=== PATIENT | male | born 1935 | race Caucasian/White ===

== ENCOUNTER 2017-05-25 16:23 | Inpatient (IN) | payer MEDICARE, BC ==
[~2017-05-25] VITALS: Ht 177.8 cm; Wt 81.6 kg
--- NOTE | 2017-05-25 16:41 | NUR ---
RECIEVED PATIENT TO ED BED 10, PATIENT WAS [id number] FROM WORK FOR S/P WITNESSED SYNCOPE. NO REPORTED INJURY. BS IN FIELD 134. PT IS BRADYCARDIC IN EKG. PT DENIES CHEST PAIN. GOWNED AND PLACED ON CONT CARDIAC AND POX MONITORING. ALL NEEDS ARE ATTENEDED, KEPT COMFORTABLE. AT BEDSIDE FOR EVAL
[2017-05-25 16:51] LABS: BASOPHILS # (AUTO) 0.2 /CMM (0.0-0.2); BASOPHILS % (AUTO) 2.5 % (0.0-2.0); EOSINOPHILS % (AUTO) 4.5 % (0.0-6.0); HEMATOCRIT 37 % (39-51); HEMOGLOBIN 12.8 g/dL (13.5-17.5); LYMPHOCYTES # (AUTO) 0.9 /CMM (0.8-4.8); LYMPHOCYTES % (AUTO) 13.6 % (20.0-44.0); MEAN CORPUSCULAR HGB CONC 34 g/dl (31.0-36.0); MEAN CORPUSCULAR VOLUME 90 fL (80-96); MONOCYTES # (AUTO) 0.4 /CMM (0.1-1.30); MONOCYTES % (AUTO) 6.4 % (2.0-12.0); NEUTROPHILS # (AUTO) 4.6 /CMM (1.8-8.9); PLATELET COUNT (AUTO) 192 /CMM (150-450); RDW COEFFICIENT OF VARIATION 12.9 (11.5-15.0); RED BLOOD CELL COUNT(AUTO) 4.13 MIL/uL (4.5-6.0); WHITE BLOOD COUNT (AUTO) 6.4 K/uL (4.3-11.0)
[2017-05-25] MEDS ORDERED: AMLO10TA6 PO (16:54)
[2017-05-25] MEDS ORDERED: DONE10TA11 PO (16:54)
[2017-05-25] MEDS ORDERED: MEMA28CA PO (16:54)
[2017-05-25] MEDS ORDERED: ESCI10TA PO (16:54)
[2017-05-25] MEDS ORDERED: CYAN10009 PO ×2 (16:54)
[2017-05-25] MEDS ORDERED: ROSU10TA PO (16:54)
[2017-05-25] MEDS ORDERED: FOLI1TAB16 PO (16:54)
--- NOTE | 2017-05-25 16:54 | NUR ---
PATIENT TRANSPORTED FOR CT HEAD.
[2017-05-25 17:05] LABS: CALCIUM, SERUM 9.2 mg/dL (8.5-10.1); CARBON DIOXIDE 27 mmol/L (21-32); CHLORIDE 108 mmol/L (98-107); GLUCOSE 115 mg/dL (74-106); INR 0.98 (0.85-1.15); POTASSIUM 4.3 mmol/L (3.5-5.1); SODIUM SERUM 141 mmol/L (136-145); UREA NITROGEN, BLOOD 35 mg/dL (7-18)
[2017-05-25 17:08] LABS: ALANINE AMINOTRANSFERASE 19 U/L (12-78); ALBUMIN 3.5 g/dL (3.4-5.0); ALKALINE PHOSPHATASE 70 U/L (46-116); ASPARTATE AMINOTRANSFERASE 15 U/L (15-37); BILIRUBIN,DIRECT 0.1 mg/dL (0.0-0.2); BILIRUBIN,TOTAL 0.3 mg/dL (0.2-1.0)
[2017-05-25 17:10] LABS: TROPONIN I < 0.017 ng/mL (0.00-0.056)
--- NOTE | 2017-05-25 17:28 | NUR ---
UPDATED BED 987-3
--- NOTE | 2017-05-25 19:01 | NUR ---
CALLED [facility] SEATING CAPTAIN WAS PAGED.
--- NOTE | 2017-05-25 19:20 | NUR ---
REPORT GIVEN TO PABLITO MELARA FOR KATYA.
[2017-05-25] MEDS ORDERED: IV NS 0.9% 1,000 ML IV PRN (19:22)
[2017-05-25] MEDS ORDERED: ACETAMINOPHEN 325 MG TABLET PO PRN (19:30)
[2017-05-25] MEDS ORDERED: ZOLPIDEM TARTRATE 5 MG TABLET PO PRN (19:30)
[2017-05-25] MEDS ORDERED: MAG HYDROX/AL HYDROX/SIMETH 30 ML UDC PO PRN (19:30)
[2017-05-25] MEDS ORDERED: HYDROCODONE/APAP 5/325MG 1 EACH TABLET PO PRN (19:30)
[2017-05-25] MEDS ORDERED: Z GUARD REMEDY 2 OZ OINT TP PRN (19:30)
[2017-05-25] MEDS ORDERED: MAGNESIUM HYDROXIDE 30 ML UDC PO PRN (19:30)
[2017-05-25] MEDS ORDERED: ONDANSETRON HCL/PF 4 MG/2 ML VIAL IVP PRN (19:30)
--- NOTE | 2017-05-25 19:52 | NUR ---
REPORT WAS GIVEN TO RN FOR KATYA
--- NOTE | 2017-05-25 19:55 | NUR ---
RECEIVED REPORT FROM ER NURSE KELTON REGARDING THE PATIENT WHO IS BEING ADMITTED TO TELEMETRY FLOOR.
[2017-05-25 20:05] VITALS: BP 140/86
--- NOTE | 2017-05-25 20:30 | NUR ---
SHOTGUN SHELL ASSEMBLY MACHINE OPERATOR OPENING NOTE PATIENT WAS BROUGHT TO THE UNITE VIA GURNEY AT 2009. WAS ABLE TO AMBULATE TO BED WITH STANDBY ASSISTANCE. PATIENT ALERT ORIENTED X3, OCCASIONAL FORGETFULNESS NOTED. PATIENT IS ON ROOM AIR, TOLERATES WELL, DENIES SOB OR CHEST PAIN, IN NO APPARENT DISTRESS OR DISCOMFORT AT THIS TIME, RESPIRATIONS EVEN AND UNLABORED. PATIENT WAS MADE COMFORTABLE IN BED. VITAL SIGNS TAKEN, BELONGINGS CHECKED AND ACCOUNTED FOR. FAMILY AT BEDSIDE. DR. RUIZ ASSESSED AND INTERVIEWED THE PATIENT AT BEDSIDE. ORDERS RECEIVED TO ADMIT THE PATIENT, PLACE ON TELEMETRY MONITORING. PATIENT WITH L FOREARM IV ACCESS, 18G, PATENT AND INTACT. CURRENTLY DENIES DIZZINESS. SAFETY MEASURES IN PLACE, BED IN LOW LOCKED POSITION, SIDE RAILS UP X2, CALL LIGHT WITHIN EASY REACH, WILL [place] OUT ALL THE ADMISSION ORDERS AND CONTINUE TO MONITOR.
[2017-05-25 21:01] LABS: IRON, SERUM 51 ug/dl (50-175); TOTAL IRON BINDING CAPACITY 284 ug/dl (250-450)
[2017-05-25] MEDS: ATORVASTATIN 10 MG TABLET PO SCH (21:34)
[2017-05-25] MEDS: CYANOCOBALAMIN 500 MCG TABLET PO SCH ×2 (21:34→22:53)
[2017-05-25] MEDS ORDERED: DONEPEZIL 5 MG TABLET PO SCH (22:00)
[2017-05-25 22:39] VITALS: BP_SYST 116; BP_SYST 140; BP_SYST 148; BP_DIAS 65; BP_DIAS 74; BP_DIAS 86
[2017-05-26] VITALS (8 sets, daily range): BP systolic 122–146; BP diastolic 59–98
--- NOTE | 2017-05-26 | NUR ---
PATIENT'S HEART RATE WAS IN HIGH 40S ON WINDOWS DESKTOP ENGINEER. CHECKED ON THE PATIENT, SLEEPING COMFORTABLY IN BED. PATIENT'S SON AT BEDSIDE, STATES HE DOES NOT KNOW WEATHER THIS IS NORMAL FOR HIS FATHER. CHECKED THE ECG STRIP DONE EARLIER WAS CONSISTENT WITH CURRENT READING. AWOKEN THE PATIENT TO CHECK THE HEART RATE STATUS, WENT UP TO HIGH 60S AND LOW 70S IMMEDIATELY. WILL CONTINUE TO MONITOR THROUGHOUT THE NIGHT.
--- NOTE | 2017-05-26 05:00 | NUR ---
PATIENT'S HEART RATE REMAINS STABLE IN HIGH 40S TO HIGH 50S WHILE ASLEEP. WHEN AWAKE HEART RATE GOES UP TO 70. WILL CONTINUE TO MONITOR.
[2017-05-26 06:40] LABS: BASOPHILS % (AUTO) 0.6 % (0.0-2.0); EOSINOPHILS % (AUTO) 5.6 % (0.0-6.0); HEMATOCRIT 37 % (39-51); HEMOGLOBIN 12.5 g/dL (13.5-17.5); LYMPHOCYTES % (AUTO) 14.7 % (20.0-44.0); MEAN CORPUSCULAR HGB CONC 34 g/dl (31.0-36.0); MEAN CORPUSCULAR VOLUME 91 fL (80-96); MONOCYTES # (AUTO) 0.5 /CMM (0.1-1.30); MONOCYTES % (AUTO) 7.3 % (2.0-12.0); NEUTROPHILS # (AUTO) 4.7 /CMM (1.8-8.9); NEUTROPHILS % (AUTO) 71.8 % (43.0-81.0); PLATELET COUNT (AUTO) 199 /CMM (150-450); RDW COEFFICIENT OF VARIATION 13.7 (11.5-15.0); RED BLOOD CELL COUNT(AUTO) 4.03 MIL/uL (4.5-6.0); WHITE BLOOD COUNT (AUTO) 6.6 K/uL (4.3-11.0)
--- NOTE | 2017-05-26 06:42 | NUR ---
WINDOWS SYSTEM ADMIN CLOSING NOTE PATIENT IN BED, SLEEPING, AROUSED EASY WITH VERBAL STIMULI, ORIENTED X2-3, OCCASIONAL CONFUSION, ON 2L O2 VIA NC. TOLERATING WELL, DENIES SOB OR CHEST PAIN, IN NO APPARENT DISTRESS OR DISCOMFORT AT THIS TIME, RESPIRATIONS EVEN AND UNLABORED. PATIENT ABLE TO VERBALIZE NEEDS, VITAL SIGNS STABLE, FAMILY AT BEDSIDE. ON TELEMETRY MONITORING WITH BBB BRADYCARDIA HR OF 59. PATIENT WITH L FOREARM IV ACCESS, 18G, PATENT AND INTACT, WITH FLUIDS RUNNING AT 75ML/HR. CURRENTLY DENIES DIZZINESS. ALL NEEDS ATTENDED, SAFETY MEASURES IN PLACE, BED IN LOW LOCKED POSITION, SIDE RAILS UP X2, CALL LIGHT WITHIN EASY REACH, WILL ENDORSE TO AM NURSE FOR KATYA.
[2017-05-26 06:57] LABS: CHOLESTEROL 127 mg/dL (<200); HDL CHOLESTEROL 54 mg/dL (40-60); LDL 72 mg/dL (0-99); THYROID STIMULATING HORMONE 4.158 uIU/mL (0.358-3.74); TRIGLYCERIDES 45 mg/dL (30-150)
[2017-05-26 06:59] LABS: ALANINE AMINOTRANSFERASE 21 U/L (12-78); ALBUMIN 3.3 g/dL (3.4-5.0); ALKALINE PHOSPHATASE 60 U/L (46-116); ASPARTATE AMINOTRANSFERASE 15 U/L (15-37); BILIRUBIN,TOTAL 0.4 mg/dL (0.2-1.0); CALCIUM, SERUM 9.2 mg/dL (8.5-10.1); CARBON DIOXIDE 24 mmol/L (21-32); CHLORIDE 110 mmol/L (98-107); CREATININE 1.7 mg/dL (0.6-1.3); GLUCOSE 78 mg/dL (74-106); PHOSPHORUS 3.8 mg/dL (2.5-4.9); POTASSIUM 4.4 mmol/L (3.5-5.1); SODIUM SERUM 141 mmol/L (136-145); TOTAL PROTEIN, SERUM 6.6 g/dL (6.4-8.2); UREA NITROGEN, BLOOD 36 mg/dL (7-18)
--- NOTE | 2017-05-26 07:10 | NUR ---
REPORT RECEIVED AT THE BEDSIDE. PATIENT IS RESTING COMFORTABLY IN BED. NO SOB OR DISTRESS NOTED AT THIS TIME. PATIENT DENIES PAIN. BED IN A LOW POSITION, CALL LIGHT WITHIN REACH. PATIENT HAS INCOMPLETE MED REC. WILL NOTIFY ATTENDING MD. WILL MONITOR. Addendum: 05/26/17 at 0750 by DEIRDRE HERNANDEZ RN HEART RATE SB AT 59 WITH BBB
[2017-05-26] MEDS: IV NS 0.9% 1,000 ML IV SCH ×2 (08:26→13:26)
[2017-05-26] MEDS: FOLIC ACID 1 MG TABLET PO SCH (08:27)
[2017-05-26] MEDS: CYANOCOBALAMIN 500 MCG TABLET PO SCH ×2 (08:27→21:05)
[2017-05-26] MEDS: AMLODIPINE BESYLATE 10 MG TABLET PO SCH (08:27)
[2017-05-26] MEDS: ESCITALOPRAM OXALATE (10 MG) 10 MG TABLET PO SCH (08:28)
[2017-05-26] MEDS: MEMANTINE HCL 5 MG TABLET PO SCH ×2 (08:28→16:14)
--- NOTE | 2017-05-26 20:00 | NUR ---
RN NOTES PATIENT IN BED, ALERT AND ORIENTED X3, WITH FORGETFULNESS AND IRRITABILITY, CALM, NO SOB, NO RESPIRATORY DISTRESS, DENIES ANY PAIN, NO DIZZINESS, ON TELE MONITOR, SR TROY, HEART RATE GOES DOWN TO 48-49, UNSTEADY GAIT, NEEDS ASSISTANCE TO AMBULATE, KEPT SAFE AND COMFORTABLE, FAMILY MEMBERS AT THE BEDSIDE.
[2017-05-26] MEDS: ATORVASTATIN 10 MG TABLET PO SCH (21:10)
[2017-05-27] VITALS (7 sets, daily range): BP systolic 117–135; BP diastolic 61–77
[2017-05-27 06:18] LABS: ALANINE AMINOTRANSFERASE 16 U/L (12-78); ALBUMIN 3.1 g/dL (3.4-5.0); ALKALINE PHOSPHATASE 60 U/L (46-116); ASPARTATE AMINOTRANSFERASE 14 U/L (15-37); BILIRUBIN,TOTAL 0.5 mg/dL (0.2-1.0); CALCIUM, SERUM 9.2 mg/dL (8.5-10.1); CARBON DIOXIDE 24 mmol/L (21-32); CHLORIDE 111 mmol/L (98-107); CREATININE 1.7 mg/dL (0.6-1.3); GLUCOSE 85 mg/dL (74-106); MAGNESIUM 1.9 mg/dL (1.8-2.4); PHOSPHORUS 3.3 mg/dL (2.5-4.9); SODIUM SERUM 142 mmol/L (136-145); TOTAL PROTEIN, SERUM 6.2 g/dL (6.4-8.2); UREA NITROGEN, BLOOD 27 mg/dL (7-18)
[2017-05-27 06:24] LABS: BASOPHILS # (AUTO) 0.1 /CMM (0.0-0.2); BASOPHILS % (AUTO) 0.8 % (0.0-2.0); EOSINOPHILS % (AUTO) 5.9 % (0.0-6.0); HEMATOCRIT 37 % (39-51); HEMOGLOBIN 12.5 g/dL (13.5-17.5); LYMPHOCYTES # (AUTO) 1.2 /CMM (0.8-4.8); LYMPHOCYTES % (AUTO) 17.6 % (20.0-44.0); MEAN CORPUSCULAR HGB CONC 34 g/dl (31.0-36.0); MEAN CORPUSCULAR VOLUME 91 fL (80-96); MONOCYTES # (AUTO) 0.6 /CMM (0.1-1.30); MONOCYTES % (AUTO) 8.1 % (2.0-12.0); NEUTROPHILS # (AUTO) 4.6 /CMM (1.8-8.9); NEUTROPHILS % (AUTO) 67.6 % (43.0-81.0); PLATELET COUNT (AUTO) 192 /CMM (150-450); RDW COEFFICIENT OF VARIATION 13.9 (11.5-15.0); RED BLOOD CELL COUNT(AUTO) 4.06 MIL/uL (4.5-6.0); WHITE BLOOD COUNT (AUTO) 6.8 K/uL (4.3-11.0)
--- NOTE | 2017-05-27 06:33 | NUR ---
RN NOTES PATIENT IS ALERT AND AWAKE, NO DISTRESS, ASSISTED TO TOILET, NO ACUTE CHANGE DURING SHIFT, KEPT SAFE AND COMFORTABLE, CALL LIGHT WITHIN REACH.
--- NOTE | 2017-05-27 07:05 | NUR ---
RN NOTES PT IS LAYING DOWN IN BED, SLEEPING COMFORTABLY WITH SON AT BEDSIDE. PT ON RA, RESPIRATIONS ARE EVEN AND UNLABORED. IV ON LFA INTACT AND SL. SAFETY MEASURES ARE IN PLACE, CALL LIGHT IS IN REACH. WILL CONTINUE TO MONITOR.
[2017-05-27] MEDS ORDERED: IV NS 0.9% 1,000 ML IV SCH (08:00)
[2017-05-27] MEDS: FOLIC ACID 1 MG TABLET PO SCH (08:27)
[2017-05-27] MEDS: CYANOCOBALAMIN 500 MCG TABLET PO SCH (08:27)
[2017-05-27] MEDS: AMLODIPINE BESYLATE 10 MG TABLET PO SCH (08:27)
[2017-05-27] MEDS: ESCITALOPRAM OXALATE (10 MG) 10 MG TABLET PO SCH (08:27)
[2017-05-27] MEDS: MEMANTINE HCL 5 MG TABLET PO SCH (08:27)
[2017-05-27] MEDS ORDERED: DONE10TA11 PO (11:09)
--- NOTE | 2017-05-27 11:48 | NUR ---
RN NOTES PT WAS DISCHARGED HOME, ACCOMPANIED BY FAMILY, IN STABLE CONDITION. IV AND AD BAND WERE REMOVED. PTS BELONGINGS RETURNED TO PT. DISCHARGE INSTRUCTIONS WERE GIVEN AND PT INFORMED OF NEW PRESCRIPTION AND TO FOLLOW UP WITH PCP, NEURO, AND SEO COORDINATOR. PT STATED HE WOULD MAKE HIS OWN APPOINTMENT FOR FOLLOW UP. PT REFUSED [facility] F[facility] APPOINT[facility]. DISCHARGE PAPERS WERE SIGNED AND PT WAS BROUGHT DOWN TO PRIVATE CARE WITH ASSISTANCE FROM STAFF.
== END 2017-05-27 11:45 | disposition home or self-care (01) | DRG 308 ==
LOC: ER 16:25 → TELE 19:41
PROVIDERS: ADMIT Internal Medicine; ATTEND Internal Medicine
DX: I49.5 Sick sinus syndrome (principal); N17.0 Acute kidney failure with tubular necrosis; I25.10 Atherosclerotic heart disease of native coronary artery without angina pectoris; Z95.1 Presence of aortocoronary bypass graft; F03.90 Unspecified dementia, unspecified severity, without behavioral disturbance, psychotic disturbance, mood disturbance, and anxiety; Z79.899 Other long term (current) drug therapy; I12.9 Hypertensive chronic kidney disease with stage 1 through stage 4 chronic kidney disease, or unspecified chronic kidney disease; N18.3 Chronic kidney disease, stage 3 (moderate); D63.8 Anemia in other chronic diseases classified elsewhere; T44.1X5A Adverse effect of other parasympathomimetics [cholinergics], initial encounter; Y92.009 Unspecified place in unspecified non-institutional (private) residence as the place of occurrence of the external cause
CPT/HCPCS: 36415; 70450-TC; 71045-TC; 80048-TC; 80053-TC; 80061-TC; 80076-TC; 82728-TC; 82962-TC; 83540-TC; 83735-TC; 84100-TC; 84439-TC; 84443-TC; 84484-TC; 85025-TC; 85730-TC; 93307-TC; 93880-TC; A4606; J7030; Z7610